=== PATIENT | female | born 1940 | race American Indian/Alaskan Native ===

== ENCOUNTER 2016-12-07 14:29 | Outpatient (CLI) | payer MEDICARE ==
--- NOTE | 2016-12-07 16:15 | XRay Report ---
CHEST 2 VIEWS INDICATION: Cough. COMPARISON: None similar. FINDINGS: PA and lateral chest radiographs demonstrate top normal heart size. Aortic knob calcifications. Clear lungs. Diffuse sclerotic bony heterogeneity represents known metastatic disease. Slight thoracic dextrocurvature. CONCLUSION: No acute lung abnormality in this patient with diffuse bony metastatic disease. Thank you for the opportunity to participate in this patient's care.
== END 2016-12-07 14:30 | disposition home or self-care (01) ==
LOC: SPVIMAG 14:29
PROVIDERS: ATTEND Internal Medicine
DX: R05 Cough (principal); I70.0 Atherosclerosis of aorta; M43.8X4 Other specified deforming dorsopathies, thoracic region
CPT/HCPCS: 71020